=== PATIENT | male | born 1985 | race Caucasian/White ===

== ENCOUNTER 2020-01-06 18:54 | Emergency (ER) | payer MEDICAID ==
[~2020-01-06] VITALS: Ht 177.8 cm; Wt 73.0 kg
[2020-01-06 20:25] LABS: BASOPHILS % 0.4 % (0.0-2.0); EOSINOPHILS % 1.9 % (0.0-5.0); HEMATOCRIT. 47.3 % (42.0-52.0); HEMOGLOBIN. 15.9 g/dL (14.0-18.0); LYMPHOCYTES % 34.9 % (20.0-50.0); MEAN CORPUSCULAR HEMOGLOBIN 31.1 pg (28.0-32.0); MEAN CORPUSCULAR VOLUME 92.4 fL (80.0-94.0); MONOCYTES % 7.8 % (2.0-8.0); PLATELET 267 x1000/uL (130-400); RED BLOOD CELL COUNT 5.12 mill/uL (4.7-6.1); RED CELL DISTRIBUTION WIDTH 14.1 % (11.6-14.6)
[2020-01-06 20:33] LABS: CHLORIDE 112 mEq/L (98-107)
[2020-01-06 21:00] LABS: ETHANOL BLOOD 485 mg/dL
[2020-01-06 21:10] LABS: CLARITY URINE CLEAR (CLEAR); COLOR URINE YELLOW (YELLOW); KETONES URINE NEGATIVE (NEGATIVE); LEUKOCYTE ESTERASE URINE NEGATIVE (NEGATIVE); NITRITE URINE NEGATIVE (NEGATIVE); OCCULT BLOOD URINE NEGATIVE (NEGATIVE); PH URINE 6.5 (4.5-8.0); PROTEIN URINE NEGATIVE (NEGATIVE); SPECIFIC GRAVITY URINE 1.008 (1.005-1.030); UROBILINOGEN URINE 0.2 E.U./dL (0.2-1.0)
[2020-01-06 21:40] LABS: *AMPHETAMINES SCREEN URINE NEGATIVE (NEGATIVE); *BARBITURATES SCREEN URINE NEGATIVE (NEGATIVE); *BENZODIAZEPINES SCREEN URINE NEGATIVE (NEGATIVE); *COCAINE SCREEN URINE NEGATIVE (NEGATIVE); METHADONE URINE SCREEN NEGATIVE (NEGATIVE); OPIATES URINE SCREEN NEGATIVE (NEGATIVE)
[2020-01-06 21:41] LABS: CANNABINOID URINE SCREEN NEGATIVE (NEGATIVE); PHENCYCLIDINE URINE SCREEN NEGATIVE (NEGATIVE)
[2020-01-07 05:28] VITALS: BP 117/76
== END 2020-01-07 05:51 | disposition home or self-care (01) ==
LOC: EDBD 18:54 → ER 18:54
DX: F10.129 Alcohol abuse with intoxication, unspecified (principal); Y90.8 Blood alcohol level of 240 mg/100 ml or more
CPT/HCPCS: 36415; 80053; 80305; 80307; 80320; 80329; 81003; 84484; 85025; 93005; 99285; G0480

== ENCOUNTER 2021-01-26 18:51 | Emergency (ER) | payer MEDICAID ==
[~2021-01-26] VITALS: Ht 170.2 cm; Wt 82.0 kg
[2021-01-26] MEDS ORDERED: FOLIC ACID 1 MG, THIAMINE HCL 100 MG, MVI, ADULT NO.1 10 ML in DEXTROSE 5% WATER 1,000 ML IV ONE (20:30)
[2021-01-26 23:30] LABS: BASOPHILS % 0.1 % (0.0-2.0); EOSINOPHILS % 0.5 % (0.0-5.0); HEMATOCRIT. 41.7 % (42.0-52.0); HEMOGLOBIN. 13.2 g/dL (14.0-18.0); LYMPHOCYTES % 16.1 % (20.0-50.0); MEAN CORPUSCULAR HEMOGLOBIN 23.3 pg (28.0-32.0); MEAN CORPUSCULAR VOLUME 73.3 fL (80.0-94.0); MEAN PLATELET VOLUME 8.8 fl (7.4-10.4); MONOCYTES % 3.2 % (2.0-8.0); NEUTROPHILS % 80.1 % (40.0-76.0); PLATELET 312 x1000/uL (130-400); RED BLOOD CELL COUNT 5.69 mill/uL (4.7-6.1); RED CELL DISTRIBUTION WIDTH 17.4 % (11.6-14.6)
[2021-01-26 23:39] LABS: CHLORIDE 101 mEq/L (98-107)
[2021-01-27 01:24] LABS: ETHANOL BLOOD 370 mg/dL
[2021-01-27] MEDS ORDERED: HALOPERIDOL LACTATE 5MG/ML VIAL IM ONE (02:15)
[2021-01-27] MEDS ORDERED: L25 MT (04:14)
[2021-01-27 12:30] VITALS: BP 128/76
== END 2021-01-27 12:30 | disposition home or self-care (01) ==
LOC: ER 18:51
DX: F10.129 Alcohol abuse with intoxication, unspecified (principal); Y90.8 Blood alcohol level of 240 mg/100 ml or more; Z98.890 Other specified postprocedural states
CPT/HCPCS: 36415; 70450; 80053; 80320; 85025; 96365; 96366; 96372; 99285; J1630; J3411; J3490; J7070; Z7610; G0480

== ENCOUNTER 2021-02-21 22:48 | Emergency (ER) | payer MEDICAID ==
[~2021-02-21] VITALS: Ht 170.2 cm; Wt 90.0 kg
[~2021-02-21 22:48] MED LIST: L25 MT
[2021-02-21 23:56] LABS: CHLORIDE 106 mEq/L (98-107)
[2021-02-21 23:58] LABS: BASOPHILS % 0.5 % (0.0-2.0); EOSINOPHILS % 0.5 % (0.0-5.0); HEMATOCRIT. 44.7 % (42.0-52.0); HEMOGLOBIN. 13.5 g/dL (14.0-18.0); MEAN CORPUSCULAR HEMOGLOBIN 22.6 pg (28.0-32.0); MEAN CORPUSCULAR VOLUME 74.9 fL (80.0-94.0); MEAN PLATELET VOLUME 9.7 fl (7.4-10.4); MONOCYTES % 3.1 % (2.0-8.0); NEUTROPHILS % 80.9 % (40.0-76.0); PLATELET 257 x1000/uL (130-400); RED BLOOD CELL COUNT 5.97 mill/uL (4.7-6.1); RED CELL DISTRIBUTION WIDTH 16.7 % (11.6-14.6)
[2021-02-22 00:49] LABS: ETHANOL BLOOD 385 mg/dL
[2021-02-22 07:55] VITALS: BP 136/81
== END 2021-02-22 08:34 | disposition home or self-care (01) ==
LOC: ER 22:48
DX: F10.129 Alcohol abuse with intoxication, unspecified (principal); Y90.8 Blood alcohol level of 240 mg/100 ml or more; F32.9 Major depressive disorder, single episode, unspecified; E11.9 Type 2 diabetes mellitus without complications; Z87.820 Personal history of traumatic brain injury
CPT/HCPCS: 36415; 80053; 80320; 85025; 99284; G0480

== ENCOUNTER 2021-03-30 20:29 | Emergency (ER) | payer MEDICAID ==
[~2021-03-30] VITALS: Ht 172.7 cm; Wt 100.0 kg
[2021-03-30 22:00] VITALS: BP 146/97
== END 2021-03-30 22:55 | disposition left against medical advice (07) ==
LOC: ER 20:29
DX: F10.229 Alcohol dependence with intoxication, unspecified (principal); Y90.0 Blood alcohol level of less than 20 mg/100 ml; F32.9 Major depressive disorder, single episode, unspecified; E11.9 Type 2 diabetes mellitus without complications
CPT/HCPCS: 82962; 99283

== ENCOUNTER 2021-08-25 18:53 | Emergency (ER) | payer MEDICAID, OTHER ==
[~2021-08-25] VITALS: Ht 170.2 cm; Wt 84.0 kg
[2021-08-25 20:07] LABS: BASOPHILS % 0.7 % (0.0-2.0); EOSINOPHILS % 0.7 % (0.0-5.0); HEMATOCRIT. 37.4 % (42.0-52.0); HEMOGLOBIN. 12.3 g/dL (14.0-18.0); MEAN CORPUSCULAR HEMOGLOBIN 25.4 pg (28.0-32.0); MEAN CORPUSCULAR VOLUME 77.1 fL (80.0-94.0); MEAN PLATELET VOLUME 8.8 fl (7.4-10.4); NEUTROPHILS % 68.6 % (40.0-76.0); PLATELET 367 x1000/uL (130-400); RED BLOOD CELL COUNT 4.85 mill/uL (4.7-6.1); RED CELL DISTRIBUTION WIDTH 19.2 % (11.6-14.6)
[2021-08-25 20:09] LABS: CHLORIDE 101 mEq/L (98-107)
[2021-08-25 20:18] LABS: ETHANOL BLOOD 299 mg/dL
[2021-08-26 03:00] VITALS: BP 126/72
== END 2021-08-26 03:00 | disposition home or self-care (01) ==
LOC: ER 18:53
DX: F10.229 Alcohol dependence with intoxication, unspecified (principal); Y90.8 Blood alcohol level of 240 mg/100 ml or more; G93.40 Encephalopathy, unspecified; F32.9 Major depressive disorder, single episode, unspecified; E11.9 Type 2 diabetes mellitus without complications
CPT/HCPCS: 36415; 80053; 80320; 85025; 99283; G0480

== ENCOUNTER 2021-09-28 22:31 | Emergency (ER) | payer MEDICAID, OTHER ==
[~2021-09-28] VITALS: Ht 170.2 cm; Wt 72.6 kg
[2021-09-28] MEDS ORDERED: SODIUM CHLORIDE 0.9% 1,000 ML IV ONE (23:00)
[2021-09-28] MEDS ORDERED: TETANUS, DIPHTHERIA, PERTUSSIS VAC/PF 0.5ML (>10YR OLD) IM ONE (23:15)
[2021-09-29 00:14] LABS: BASOPHILS % 0.1 % (0.0-2.0); EOSINOPHILS % 1.1 % (0.0-5.0); HEMATOCRIT. 35.8 % (42.0-52.0); HEMOGLOBIN. 11.5 g/dL (14.0-18.0); LYMPHOCYTES % 20.7 % (20.0-50.0); MEAN CORPUSCULAR HEMOGLOBIN 25.5 pg (28.0-32.0); MEAN CORPUSCULAR VOLUME 79.3 fL (80.0-94.0); MEAN PLATELET VOLUME 6.9 fl (7.4-10.4); MONOCYTES % 6.7 % (2.0-8.0); NEUTROPHILS % 71.4 % (40.0-76.0); PLATELET 411 x1000/uL (130-400); RED BLOOD CELL COUNT 4.52 mill/uL (4.7-6.1); RED CELL DISTRIBUTION WIDTH 18.9 % (11.6-14.6)
[2021-09-29 01:01] LABS: CHLORIDE 98 mEq/L (98-107)
[2021-09-29 01:06] LABS: ETHANOL BLOOD 392 mg/dL
[2021-09-29 08:26] VITALS: BP 113/65
== END 2021-09-29 08:28 | disposition home or self-care (01) ==
LOC: ER 22:31
DX: F10.229 Alcohol dependence with intoxication, unspecified (principal); F32.A Depression, unspecified; E11.9 Type 2 diabetes mellitus without complications; M19.021 Primary osteoarthritis, right elbow; Y90.8 Blood alcohol level of 240 mg/100 ml or more; Z87.820 Personal history of traumatic brain injury; Z98.890 Other specified postprocedural states
CPT/HCPCS: 36415; 70450; 73080; 80053; 80307; 80320; 80329; 82962; 85025; 90471; 90715; 99285; J7030; G0480